=== PATIENT | female | born 1950 | race Caucasian/White ===

== ENCOUNTER 2018-09-09 21:27 | Emergency (ER) | payer OTHER ==
[2018-09-09 21:34] VITALS: BP 147/91; PULSE 59; TEMP 98.1; BMI 25.9
--- NOTE | 2018-09-09 21:42 | PDOC ---
*Physical Exam - Vital Signs Last Vital Signs Temp Pulse Resp BP Pulse Ox 98.1 F 59 L 20 147/91 99 09/09/18 21:29 09/09/18 21:29 09/09/18 21:29 09/09/18 21:29 09/09/18 21:29 Medical Decision Making - Medical Decision Making 09/10/18 00:49 Ms Anne is a 68 yo F who present so the ER complaining of being exposed to crack cocaine in her apartment due to her neighbors smoking crack which has infiltrated in to her apartment. When left her apartment, the air quiality improved. She had a headache but this has resolved. No headache during my assessment Pt was moved from one room to the Vertical area which seemed to upset her I went to speak with the patient again and she could not be found for further assessment Pt seen by Midlevel Provider under my direct supervision Pt interviewed and examined Attempted to send urine toxicology (PER PT REQUEST) but the specimen spilled in the bag no labs available for review Efforts made to find this patient were unsuccessful Pt has eloped from the ER 09/10/18 00:56 *DC/Admit/Observation/Transfer Diagnosis at time of Disposition: Headache - Discharge Dispostion Disposition: ELOPED - Referrals Referrals: Oneil Menchaca [Primary Care Provider] - - Patient Instructions - Post Discharge Activity
--- NOTE | 2018-09-10 00:02 | PDOC ---
History of Present Illness - General Chief Complaint: Headache Stated Complaint: MIGRAINE Time Seen by Provider: 09/09/18 21:38 History Source: Patient Exam Limitations: No Limitations - History of Present Illness Initial Comments: 09/09/18 23:58 Best Contact: PCP:Dr. Menchcaa/Juanito Pmhx:0 Pshx:0 Allergies: NKDA FH:0 Social Hx: Cigarettes/ 0 Alcohol/ 0 Drugs/0 68-year-old female presents to the emergency department complaining of being exposed to crack cocaine in her apartment. Patient states she was feeling fine all weekend when she was in [place] visiting a friend. When she returned home approximately 3 hours ago she smelled what she believes to be crack cocaine area patient states her neighbors are only smoking drugs and she feels that is infiltrated into her apartment causing her to breathe into the illicit drugs. Patient states prior to coming to the ER, she felt a 3/10 nonradiating intermittent headache which has subsided after taking deep breaths when she left her apartment. Patient denies nausea/vomiting, fever/chills, dizziness, lightheadedness, neck pain/stiffness, back pains, chest pain, shortness of breath, abdominal pains, flank pains, extremity numbness or tingling sensation. Patient states this is been going on for the past 2 years. Every time she leaves the building, she feels a lot better with some deep inhalation of fresh air. 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 who told her she needs to get her air checked Past History - Past Medical History Allergies/Adverse Reactions: Allergies Allergy/AdvReac Type Severity Reaction Status Date / Time No Known Allergies Allergy Verified 09/10/18 00:29 Home Medications: Ambulatory Orders NK [No Known Home Medication] 09/10/18 - Suicide/Smoking/Psychosocial Hx Smoking History: Unknown if ever smoked Hx Alcohol Use: No Drug/Substance Use Hx: No Review of Systems - Review of Systems Able to Perform ROS?: Yes Comments:: 09/09/18 23:59 CONSTITUTIONAL: Absent: fever, chills, diaphoresis, generalized weakness, malaise, loss of appetite HEENT: Absent: rhinorrhea, nasal congestion, throat pain, throat swelling, difficulty swallowing, mouth swelling, ear pain, eye pain, visual Changes CARDIOVASCULAR: Absent: chest pain, loss of consciousness, palpitations, irregular heart rate, peripheral edema RESPIRATORY: Absent: cough, shortness of breath, dyspnea with exertion, orthopnea, wheezing, stridor, hemoptysis GASTROINTESTINAL: Absent: abdominal pain, abdominal distension, nausea, vomiting, diarrhea, constipation, melena, hematochezia GENITOURINARY: Absent: dysuria, frequency, urgency, hesitancy, hematuria, flank pain, genital pain MUSCULOSKELETAL: Absent: myalgia, arthralgia, joint swelling SKIN: Absent: rash, itching, pallor HEMATOLOGIC/IMMUNOLOGIC: Absent: easy bleeding, easy bruising, lymphadenopathy, frequent infections ENDOCRINE: Absent: unexplained weight gain, unexplained weight loss, heat intolerance, cold intolerance NEUROLOGIC: Absent: headache, focal weakness or paresthesias, dizziness, unsteady gait, seizure, mental status changes, bladder or bowel incontinence PSYCHIATRIC: Absent: anxiety, depression, suicidal or homicidal ideation, hallucinations. Is the patient limited Upper Sorbian proficient: No *Physical Exam - Vital Signs Last Vital Signs Temp Pulse Resp BP Pulse Ox 98.1 F 59 L 20 147/91 99 09/09/18 21:29 09/09/18 21:29 09/09/18 21:29 09/09/18 21:29 09/09/18 21:29 - Physical Exam Comments: 09/09/18 23:59 GENERAL: Well developed, well nourished. Awake and alert. No acute distress. HEENT: Normocephalic, atraumatic. PERRLA, EOMI. No conjunctival pallor. Sclera are non- icteric. Moist mucous membranes. Oropharynx is clear. NECK: Supple. Full ROM. No JVD. Carotid pulses 2+ and symmetric, without bruits. No thyromegaly. No lymphadenopathy. CARDIOVASCULAR: Regular rate and rhythm. No murmurs, rubs, or gallops. Distal pulses are 2+ and symmetric. PULMONARY: No evidence of respiratory distress. Lungs clear to auscultation bilaterally. No wheezing, rales or rhonchi. ABDOMINAL: Soft. Non-tender. Non-distended. No rebound or guarding. No organomegaly. Normoactive bowel sounds. MUSCULOSKELETAL Normal range of motion at all joints. No bony deformities or tenderness. No CVA tenderness. EXTREMITIES: No cyanosis. No clubbing. No edema. No calf tenderness. SKIN: Warm and dry. Normal capillary refill. No rashes. No jaundice. NEUROLOGICAL: Alert, awake, appropriate. Cranial nerves 2-12 intact. No deficits to light touch and temperature in face, upper extremities and lower extremities. No motor deficits in the in face, upper extremities and lower extremities. Normoreflexic in the upper and lower extremities. Normal speech. Toes are down- going bilaterally. Gait is normal without ataxia. PSYCHIATRIC: Cooperative. Good eye contact. Appropriate mood and affect. Moderate Sedation - Procedure Monitoring Vital Signs: Procedure Monitoring Vital Signs Temperature 98.1 F 09/09/18 21:29 Pulse Rate 59 L 09/09/18 21:29 Respiratory Rate 20 09/09/18 21:29 Blood Pressure 147/91 09/09/18 21:29 O2 Sat by Pulse Oximetry (%) 99 09/09/18 21:29 *DC/Admit/Observation/Transfer Diagnosis at time of Disposition: Headache - Discharge Dispostion Disposition: ELOPED - Referrals Referrals: Oneil Menchaca [Primary Care Provider] - - Patient Instructions - Post Discharge Activity
== END 2018-09-10 00:31 | disposition left against medical advice (07) ==
LOC: JER 22:51
DX: R51 Headache (principal)
CPT/HCPCS: 99281-25

== ENCOUNTER 2018-10-13 22:30 | Emergency (ER) | payer OTHER ==
[2018-10-13 22:44] VITALS: TEMP 98.4; BMI 24.1
[2018-10-13] MEDS ORDERED: ACETAMINOPHEN 325 MG TABLET (FP) PO ONE (23:14)
--- NOTE | 2018-10-13 23:24 | PDOC ---
History of Present Illness - General Chief Complaint: Blood Pressure Problem Stated Complaint: HIGH BLOOD PRESURE Time Seen by Provider: 10/13/18 22:57 History Source: Patient Exam Limitations: No Limitations - History of Present Illness Initial Comments: 10/13/18 23:16 68 y/o female with no PMH presents with complaints of high blood pressure and headache. She states that she feels something is in the air of her neighbors apartment which is causing her blood pressure to be elevated and her to have these headaches shortness of breath. She had a similar episode about a few months ago where she thought her neighbors apartments had some sort of drugs permeating through the air and she started to develop headaches and eye itchiness and shortness of breath- she called EMS at that time and her BP was foudnd to be in the 200's systolics so she went to [facility]. she was d/ c home with no HTN meds because by the time she had arrived to the hospital her BP was found to be normal, ever since then she invested in a portable BP machine and she took her pressure today and it was found to be in the 170s systolics so she came here She endorses having a headache in addition to the eye itchiness however she denies any chest pains,blurred vision, nausea/ vomiting or dizziness. denies any sick contacts as well. She also mentions that when people visit her apartment they can definitely smell something in the apartment. 10/13/18 23:25 10/13/18 23:44 Severity: moderate Associated Symptoms: reports: shortness of breath. denies: chest pain, nausea/ vomiting Past History - Travel Traveled outside of the country in the last 30 days: No Close contact w/someone who was outside of country & ill: No - Past Medical History Allergies/Adverse Reactions: Allergies Allergy/AdvReac Type Severity Reaction Status Date / Time No Known Allergies Allergy Verified 09/10/18 00:29 Home Medications: Ambulatory Orders NK [No Known Home Medication] 09/10/18 COPD: No - Family Disease History Family Disease History: Heart Disease: Father, Mother - Immunization History Immunization Up to Date: Yes - Suicide/Smoking/Psychosocial Hx Smoking Status: No Smoking History: Unknown if ever smoked Information on smoking cessation initiated: No Hx Alcohol Use: No Drug/Substance Use Hx: No Review of Systems - Review of Systems Able to Perform ROS?: Yes Is the patient limited Thai proficient: No Constitutional: No: Diaphoresis HEENTM: Yes: Nose Congestion Respiratory: Yes: Shortness of Breath. No: Cough Cardiac (ROS): No: Chest Pain : No: Burning, Dysuria Musculoskeletal: No: Back Pain Neurological: Yes: Headache *Physical Exam - Vital Signs Last Vital Signs Temp Pulse Resp BP Pulse Ox 98.4 F 61 20 178/87 H 99 10/13/18 22:40 10/13/18 22:40 10/13/18 22:40 10/13/18 22:40 10/13/18 22:40 - Physical Exam General Appearance: Yes: Nourished HEENT: positive: Normal Voice Neck: positive: Normal Thyroid Respiratory/Chest: positive: Lungs Clear, Normal Breath Sounds Cardiovascular: positive: Regular Rhythm, Regular Rate, S1, S2. negative: Edema Gastrointestinal/Abdominal: positive: Normal Bowel Sounds, Soft. negative: Tender Musculoskeletal: negative: CVA Tenderness Neurologic: positive: android programmer II-XII NML intact, Fully Oriented, Alert. negative: Numbness Medical Decision Making - Medical Decision Making 10/13/18 23:28 CT head pain control for H/A amlodipine recheck vitals; dispo cancelling head CT patient feels much better - shes going to a hotel tonight ; repeat BP 149/65 will be following up with her PMD Dr. Yuen on Tuesday. 10/13/18 23:52 10/13/18 23:56 *DC/Admit/Observation/Transfer Diagnosis at time of Disposition: Headache, Elevated blood pressure reading - Discharge Dispostion Disposition: HOME Condition at time of disposition: Stable - Referrals Referrals: Oneil Yuen [Non Staff, Medical] - - Patient Instructions Additional Instructions: please follow up with dr. yuen for your regularly scheduled appointment on Tuesday please continue to monitor your blood pressure and if you continue to have elevated readings please return if you have any concerning or worsening symptoms please return to the emergency room immediately - Post Discharge Activity - Attestations Physician Attestion: 10/13/18 23:56 Jo Ann Torres
[2018-10-13] MEDS ORDERED: amLODIPine BESYLATE 5 MG TABLET (FP) PO ONE (23:37)
[2018-10-13] MEDS ORDERED: ACETAMINOPHEN 325 MG TABLET (FP) ONE (23:51)
[2018-10-13] MEDS ORDERED: amLODIPine BESYLATE 5 MG TABLET (FP) ONE (23:52)
--- NOTE | 2018-10-14 00:02 | PDOC ---
Documentation entered by Adrian Bustamante SCRIBE, acting as scribe for Los Plummer MD. Los Plummer MD: This documentation has been prepared by the Robby baird Daniel, SCRIBE, under my direction and personally reviewed by me in its entirety. I confirm that the documentation accurately reflects all work, treatment, procedures, and medical decision making performed by me. Attending Attestation - Resident Resident Name: BrianJo Ann - ED Attending Attestation I have performed the following: I have examined & evaluated the patient, The case was reviewed & discussed with the resident, I agree w/resident's findings & plan, Exceptions are as noted - HPI HPI: 10/13/18 23:26 The patient is a 68 year old female with no past medical history here today for evaluation of high blood pressure. Patient reports that she came to the ED for high blood pressure and eye itchiness which she attributes to fumes from her neighbors apartment. Pt states she checks her BP regularly, and is normally around 120/80. However, this evening pt began to smell a caustic smell from her neighbor's apartment. She began to have nasal congestion and burning in her eyes , as well as a mild headache. Denies CP/SOB. Denies N/V. Pt checked her BP and found it to be 180 systolic, prompting her to come to the ED. Since arriving to the ED, pt states her symptoms have completely subsided. Denies any complaints at this time. Patient denies lightheadedness. Denies fever, chills. Denies chest pain, shortness of breath. Denies nausea, vomiting, diarrhea, abdominal pain. Allergies: NKA Social history: patient denies tobacco use - Physicial Exam PE: 10/14/18 00:00 "GENERAL: Awake, alert, and fully oriented, in no acute distress. HEAD: No signs of trauma EYES: PERRLA, EOMI, sclera anicteric, conjunctiva clear ENT: Auricles normal inspection, hearing grossly normal, nares patent, oropharynx clear without exudates. Moist mucosa NECK: Nontender, no stepoffs, Normal ROM, supple, no lymphadenopathy, JVD, or masses LUNGS: Breath sounds equal, clear to auscultation bilaterally. No wheezes, and no crackles HEART: Regular rate and rhythm, normal S1 and S2, no murmurs, rubs or gallops ABDOMEN: Soft, nontender, normoactive bowel sounds. No guarding, no rebound. No masses EXTREMITIES: Normal range of motion, no edema. No clubbing or cyanosis. No cords, erythema, or tenderness NEUROLOGICAL: Cranial nerves II through XII intact. 5/5 strength and sensation in all extremities, Normal speech, normal gait, normal cerebellar function SKIN: Warm, Dry, normal turgor, no rashes or lesions noted. - Medical Decision Making 10/14/18 00:00 68 F with elevated BP, nasal congestion, eye irritation, and headache, now resolved. Likely 2/2 irritant in her apartment. Pt now asymptomatic, with improving BP. - F/u PMD for BP - Pt counseled on staying out of her apartment until the irritant has been cleared Rpt BP improving without intervention *HR 60 upon discharge. HR 31 that was recorded was documented in error. Pt is well appearing, with normal vitals. Clinically stable for DC at this time. I discussed the physical exam findings, ancillary test results and final diagnoses with the patient. I answered all of the patient's questions. The patient was satisfied with the care received and felt comfortable with the discharge plan and treatment plan. The patient agrees to follow up with the primary care physician within 24-72 hours.
[2018-10-14 00:24] VITALS: BP 160/78; PULSE 31
== END 2018-10-14 00:24 | disposition home or self-care (01) ==
LOC: JER 22:30
DX: I10 Essential (primary) hypertension (principal); R51 Headache
CPT/HCPCS: 99281-25